=== PATIENT | female | born 1970 | race Caucasian/White ===

== ENCOUNTER 2016-11-18 19:39 | Emergency (ER) | payer OTHER ==
[~2016-11-18] VITALS: Ht 149.9 cm; Wt 53.3 kg
[2016-11-18 19:47] VITALS: BP 123/78; PULSE 104; RESP 18; TEMP 98.5; O2SAT 99
[2016-11-18] MEDS ORDERED: SODIUM CHLORIDE 0.9% FLUSH 10 ML FLUSH IV FLUSH PRN (20:00)
[2016-11-18] MEDS ORDERED: SODIUM CHLOR 0.9% 1000 ML INJ 1,000 ML IV SCH (20:00)
[2016-11-18] MEDS ORDERED: ONDANSETRON HCL 4 MG/2 ML VIAL IVP ONE (20:00)
[2016-11-18 20:04] VITALS: RESP 18; O2SAT 98
--- NOTE | 2016-11-18 20:07 | PD ---
HPI Chief Complaint: GI Complaint Time Seen by Provider: 20:00 Travel History International Travel<30 days: No Contact w/Intl Traveler<30days: No Traveled to known affect area: No History of Present Illness HPI 46-year-old female presents to the emergency department for 2 days of nausea vomiting abdominal cramping and diarrhea. Patient's also had intermittent headache. Patient denies fever chills sinus pressure drainage sore throat earache or neck stiffness. No cough or congestion shortness of breath or chest pain. Patient states that she does not recall any dietary indiscretion well water ingestion or foreign travel. Patient has not recently been on antibiotic. Patient has had some intermittent bilious emesis but no coffee- ground emesis or hematemesis. Patient denies melena or hematochezia. Patient states abdominal cramping is intermittent. Patient states she started to feel better but started having recurrent symptoms this evening. No other family members with similar symptoms. Patient does have history of irritable bowel syndrome. Patient has had gallbladder related complications in the past with cholecystectomy intraoperative duct injury with stent placement and pancreatitis. Patient denies any other surgeries other than a tubal ligation. Patient rates discomfort when present is moderate. Patient states she just started her menses. Patient denies . Patient denies dysuria frequency urgency flank pain or hematuria. No rash, joint pain, or joint swelling. Patient did attempt ibuprofen and acetaminophen for symptom relief without benefit. Patient notes that tenting sips of water reproduces cramping abdominal pain. PFSH Past Medical History Narrative Medical Interval bowel syndrome, cholecystectomy, well-developed injury with stent placement, pancreatitis, tubal ligation no tobacco use no alcohol use no substance use; nursing notes reviewed ?: Not LMP: 11-17-16 Social History Tobacco Use: No Allergies-Medications (Allergen,Severity, Reaction): Coded Allergies: Sulfa (Verified Allergy, Unknown, RASH, 11/18/16) Reported Meds & Prescriptions Reported Meds & Active Scripts Active No Active Prescriptions or Reported Medications Narrative Medication Ibuprofen/acetaminophen as needed Review of Systems Except as stated in HPI: all other systems reviewed are Neg General / Constitutional: No: Fever, Chills HENT: Positive: Headaches, No: Congestion, Neck Stiffness, Neck Pain Cardiovascular: No: Chest Pain or Discomfort Respiratory: No: Cough, Shortness of Breath Gastrointestinal: Positive: Nausea, Vomiting, Diarrhea, Abdominal Pain ( cramping), Changes in Bowel Habits, No: Hematemesis, Hematochezia, Constipation , Loss of Appetite Genitourinary: No: Urgency, Frequency, Dysuria Musculoskeletal: No: Myalgias, Arthralgias Skin: No Rash Neurologic: No: Weakness, Dizziness Psychiatric: No: Anxiety Hematologic/Lymphatic: No: Lymph Node Enlargement Physical Exam Narrative GENERAL: Well-developed well-nourished female in no acute distress no respiratory distress; triage vital signs mild tachycardia otherwise vital signs : Normal range SKIN: Warm and dry. HEAD: Normocephalic. EYES: No scleral icterus. No injection or drainage. NECK: Supple, trachea midline. No JVD or lymphadenopathy. CARDIOVASCULAR: Regular rate and rhythm without murmurs, gallops, or rubs. RESPIRATORY: Breath sounds equal bilaterally. No accessory muscle use. GASTROINTESTINAL: Abdomen soft, mildly diffusely tender without guarding or rebound primarily left-sided tenderness, nondistended. MUSCULOSKELETAL: No cyanosis, or edema. BACK: Nontender without obvious deformity. No CVA tenderness. Data Data Last Documented VS Vital Signs Date Time Temp Pulse Resp B/P Pulse Ox O2 Delivery O2 Flow Rate FiO2 11/18/16 22:19 101 18 102/62 98 Room Air 11/18/16 19:47 98.5 Orders Complete Blood Count With Diff (11/18/16 20:00) Comprehensive Metabolic Panel (11/18/16 20:00) Lipase (11/18/16 20:00) Urinalysis - C+S If Indicated (11/18/16 20:00) Iv Access Insert/Monitor (11/18/16 20:00) Ecg Monitoring (11/18/16 20:00) Oximetry (11/18/16 20:00) Ondansetron Inj (Zofran Inj) (11/18/16 20:00) Sodium Chlor 0.9% 1000 Ml Inj (Ns 1000 M (11/18/16 20:00) Sodium Chloride 0.9% Flush (Ns Flush) (11/18/16 20:00) Ed Urine Pregnancytest Poc (11/18/16 20:00) Ketorolac Inj (Toradol Inj) (11/18/16 21:00) Pantoprazole Inj (Protonix Inj) (11/18/16 21:00) Ct Abd/Pel W Iv Contrast(Rout) (11/18/16 ) Iohexol 350 Inj (Omnipaque 350 Inj) (11/18/16 21:39) Sodium Chlorid 0.9% 500 Ml Inj (Ns 500 M (11/18/16 22:00) Potassium Chloride (Kcl) (11/18/16 22:15) Labs Laboratory Tests Test 11/18/16 20:20 White Blood Count 4.1 TH/MM3 Red Blood Count 4.69 MIL/MM3 Hemoglobin 13.9 GM/DL Hematocrit 39.9 % Mean Corpuscular Volume 85.2 FL Mean Corpuscular Hemoglobin 29.6 PG Mean Corpuscular Hemoglobin 34.8 % Concent Red Cell Distribution Width 12.4 % Platelet Count 167 TH/MM3 Mean Platelet Volume 8.8 FL Neutrophils (%) (Auto) 76.5 % Lymphocytes (%) (Auto) 13.1 % Monocytes (%) (Auto) 8.9 % Eosinophils (%) (Auto) 1.3 % Basophils (%) (Auto) 0.2 % Neutrophils # (Auto) 3.1 TH/MM3 Lymphocytes # (Auto) 0.5 TH/MM3 Monocytes # (Auto) 0.4 TH/MM3 Eosinophils # (Auto) 0.1 TH/MM3 Basophils # (Auto) 0.0 TH/MM3 CBC Comment DIFF FINAL Differential Comment Urine Color YELLOW Urine Turbidity SLIGHT Urine pH 6.0 Urine Specific [place] 1.023 Urine Protein TRACE mg/dL Urine Glucose (UA) NEG mg/dL Urine Ketones NEG mg/dL Urine Occult Blood LARGE Urine Nitrite NEG Urine Bilirubin NEG Urine Leukocyte Esterase NEG Urine RBC 20-24 /hpf Urine Squamous Epithelial 0-5 /hpf Cells Urine Calcium Oxalate Crystals RARE /hpf Urine Bacteria OCC /hpf Urine Mucus FEW /lpf Microscopic Urinalysis Comment CULT NOT INDICATED Sodium Level 139 MEQ/L Potassium Level 3.2 MEQ/L Chloride Level 107 MEQ/L Carbon Dioxide Level 22.5 MEQ/L Anion Gap 10 MEQ/L Blood Urea Nitrogen 9 MG/DL Creatinine 0.57 MG/DL Estimat Glomerular Filtration 114 ML/MIN Rate Random Glucose 102 MG/DL Calcium Level 8.0 MG/DL Total Bilirubin 0.3 MG/DL Aspartate Amino Transf 17 U/L (AST/SGOT) Alanine Aminotransferase 24 U/L (ALT/SGPT) Alkaline Phosphatase 54 U/L Total Protein 6.7 GM/DL Albumin 3.3 GM/DL Lipase 128 U/L MDM Medical Decision Making Medical Screen Exam Complete: Yes Emergency Medical Condition: Yes Medical Record Reviewed: Yes Interpretation(s) CBC & BMP Diagram 11/18/16 20:20 Vital Signs Date Time Temp Pulse Resp B/P Pulse Ox O2 Delivery O2 Flow Rate FiO2 11/18/16 20:59 93 18 114/68 98 Room Air 11/18/16 20:04 18 98 Room Air 11/18/16 20:01 18 11/18/16 19:47 98.5 104 18 123/78 99 Last Impressions Abdomen/Pelvis CT 11/18/16 0000 Signed Impressions: Service Date/Time: Sunday, November 18, 2016 21:25 - CONCLUSION: 1. No acute findings within the abdomen and pelvis. There is mild ileus. Specifically no bowel obstruction. No free air or free fluid. Appendix appears normal. Aki Fields MD Differential Diagnosis Gastroenteritis, bowel obstruction, choledocholithiasis, pancreatitis, diverticulitis, colitis, food borne illness, dehydration, renal colic, viral syndrome Narrative Course IV access obtained specimens collected and sent for resulting patient administered 1 L bolus of normal saline along with Zofran 4 mg IV Laboratory values resulted patient likely clinically improved identified to have hypokalemia and calcium oxalate crystals by metabolic panel normal LFTs and normal range lipase [id number] hCG is negative Blood in urine most likely reflects menses CT abdomen and pelvis imaging study ordered CT resulted no evidence for colitis diverticulitis appendicitis or obstructive uropathy and no abnormality radiographic and identified of the pancreas, common bile duct is "about 7 mm" status post cholecystectomy. Patient is identified to have mild ileus by CT imaging patient continues to pass flatus and loose stool no indication for bowel obstruction. Patient given trial of oral hydration; and oral potassium replacement. @ 22: 38 PM patient tolerating oral hydration and potassium replacement and stable for outpatient management Diagnosis Primary Impression: Gastroenteritis Additional Impression: Hypokalemia Referrals: Primary Care Physician 1 day Patient Instructions: General Instructions Additional Instructions: Follow clear liquid diet for next 12-24 hours advance as tolerated to bland/ Franky diet and regular diet Add potassium containing foods and beverages to dietary intake Increase fluid hydration Takes Zofran as prescribed as needed for nausea and/or vomiting Monitor temperature for hours with thermometer and take acetaminophen/Tylenol for fever 100.4F or greater Return to the emergency department for recurrent pain fever vomiting or any concerns Med/Other Pt SpecificInfo: Prescription(s) given Scripts Ondansetron Odt (Zofran Odt)4 Mg Tab4 Mg SL Q6HR PRN (Nausea/Vomiting) #10 TAB Ref 0 Prov:Alisa Garcia MD 11/18/16 Disposition: 01 DISCHARGE HOME Condition: Stable Alisa Garcia MD Nov 18, 2016 20:07
[2016-11-18 20:33] LABS: AUTOMATED NEUTROPHIL # 3.1 TH/MM3 (1.8-7.7); BASOPHIL % 0.2 % (0.0-2.0); EOSINOPHIL # 0.1 TH/MM3 (0-0.4); EOSINOPHIL % 1.3 % (0.0-4.0); HEMATOCRIT 39.9 % (35.0-46.0); LYMPH % 13.1 % (9.0-44.0); LYMPHOCYTE # 0.5 TH/MM3 (1.0-4.8); MEAN CELL VOLUME 85.2 FL (80.0-100.0); MEAN CORPUSCULAR HEMOGLOBIN 29.6 PG (27.0-34.0); MEAN CORPUSCULAR HGB CONC 34.8 % (32.0-36.0); MONO % 8.9 % (0.0-8.0); NEUT % 76.5 % (16.0-70.0); PLATELET COUNT 167 TH/MM3 (150-450); RED BLOOD COUNT 4.69 MIL/MM3 (4.00-5.30); RED CELL DISTRIBUTION WIDTH 12.4 % (11.6-17.2); WHITE BLOOD COUNT 4.1 TH/MM3 (4.0-11.0)
[2016-11-18 20:38] LABS: BLOOD, URINE LARGE (NEG); GLUCOSE,URINE NEG (NEG); KETONE, URINE NEG (NEG); NITRITE,URINE NEG (NEG)
[2016-11-18 20:46] LABS: CHLORIDE 107 MEQ/L (98-107); POTASSIUM 3.2 MEQ/L (3.5-5.1); SODIUM (NA) 139 MEQ/L (136-145)
[2016-11-18 20:50] LABS: ANION GAP 10 MEQ/L (5-15); BICARBONATE 22.5 MEQ/L (21.0-32.0); BLOOD UREA NITROGEN 9 MG/DL (7-18)
[2016-11-18 20:52] LABS: MUCUS URINE FEW /lpf (OCC); URINE COLOR YELLOW (YELLW/STRAW)
[2016-11-18 20:53] LABS: ALT (GPT) 24 U/L (10-53); AST (GOT) 17 U/L (15-37); BACTERIA, URINE OCC /hpf; GLOMERULAR FILTRATION RATE 114 ML/MIN (>89); SQUAMOUS EPITHELIAL CELL URINE 0-5 /hpf (0-5)
[2016-11-18 20:54] LABS: CALCIUM OXALATE CRYSTALS,URINE RARE /hpf; TOTAL BILIRUBIN ADULT 0.3 MG/DL (0.2-1.0)
[2016-11-18 20:55] LABS: COMMENT (UR) CULT NOT INDICATED; CULTURE IF INDICATED CULT NOT INDICATED
[2016-11-18 20:56] LABS: ALKALINE PHOSPHATASE 54 U/L (45-117)
[2016-11-18 20:59] VITALS: BP 114/68; PULSE 93; RESP 18; O2SAT 98
[2016-11-18] MEDS ORDERED: KETOROLAC TROMETHAMINE 30 MG/ML (IVP) VIAL IV PUSH ONE (21:00)
[2016-11-18] MEDS ORDERED: PANTOPRAZOLE SODIUM 40 MG VIAL IV PUSH ONE (21:00)
[2016-11-18 21:04] LABS: HEMO FLAGS DIFF FINAL
[2016-11-18] MEDS ORDERED: IOHEXOL 350 MG/ML 10 ML VIAL (for RAD DIAG) IV ONE (21:39)
--- NOTE | 2016-11-18 21:55 | RADHPO ---
EXAM DATE/TIME: 11/18/2016 21:25 [facility] COMPARISON: No previous studies available for comparison. INDICATIONS : Mid abdominal pain. Nausea, vomiting and diarrhea. IV CONTRAST: 85 cc Omnipaque 350 (iohexol) IV ORAL CONTRAST: No oral contrast ingested. RADIATION DOSE: 5.12 CTDIvol (mGy) MEDICAL HISTORY : Irritable bowel syndrome. SURGICAL HISTORY : Cholecystectomy. Tubal ligation. ENCOUNTER: Initial ACUITY: 2 days PAIN SCALE: 5/10 LOCATION: Mid abdomen. TECHNIQUE: Volumetric scanning of the abdomen and pelvis was performed. Using automated exposure control and ad justment of the mA and/or kV according to patient size, radiation dose was kept as low as reasonably achievable to obtain optimal diagnostic quality images. FINDINGS: Lung bases are clear. No acute findings in the liver. Small linear calcification posterior to the rig ht of the liver, benign appearing. Spleen, adrenals, kidneys and pancreas unremarkable. Previous chol ecystectomy. Common bile duct measures about 7 mm in diameter. No free fluid. Mild ileus. No bowel obstruction. No free air. Mejia catheter present in the bladder. CONCLUSION: 1. No acute findings within the abdomen and pelvis. There is mild ileus. Specifically no bowel obstru ction. No free air or free fluid. Appendix appears normal. Aki Feilds MD on November 18, 2016 at 21:43 Board Certified Radiologist. This report was verified electronically.
[2016-11-18] MEDS ORDERED: SODIUM CHLORID 0.9% 500 ML INJ 500 ML IV ONE (22:00)
[2016-11-18] MEDS ORDERED: POTASSIUM CHLORIDE 20 MEQ CONTROLLED RELEASE TAB PO ONE (22:15)
[2016-11-18 22:19] VITALS: BP 102/62; PULSE 101; RESP 18; O2SAT 98
[2016-11-18] MEDS ORDERED: ZOFR4TAB3 SL (22:38)
== END 2016-11-18 22:53 | disposition home or self-care (01) ==
LOC: PHED 19:39
DX: K52.9 Noninfective gastroenteritis and colitis, unspecified (principal); E87.6 Hypokalemia; R51 Headache; Z87.19 Personal history of other diseases of the digestive system
CPT/HCPCS: 74177; 80053; 81001; 83690; 84703; 85025; 96361; 96374; 96375; 99285; C9113; J1885; J2405; J7030; J7040; Q9967